=== PATIENT | female | born 2000 | race Caucasian/White ===

== ENCOUNTER 2023-06-10 00:25 | Inpatient (IN) | payer OTHER ==
[2023-06-10] MEDS ORDERED: ELECTROLYTE-148 SOLN 1,000 ML IV SCH (01:20)
[2023-06-10] MEDS ORDERED: AMPICILLIN - 2 GM in SODIUM CHLORIDE 100 ML IVPB ONE (01:30)
[2023-06-10 02:04] VITALS: BMI 29.1
[2023-06-10 02:04] LABS: BASO % 0.3 % (0-2.0); EOS % 0.3 % (0-4.5); LYMPH % 19.1 % (8-40); MCHC 33.3 g/dl (32.0-36.0); MEAN CELL VOLUME 87.3 fl (80-96); MONO % 9.6 % (3.8-10.2); NEUT % 70.7 % (42.8-82.8); PLATELET COUNT 264 10^3/uL (134-434); RBC 4.13 M/mm3 (3.60-5.2); RDW 13.6 % (11.6-15.6); WHITE BLOOD COUNT 17.2 K/mm3 (4.0-10.0)
[2023-06-10 02:12] LABS: INR 0.95 (0.83-1.09)
[2023-06-10 02:15] LABS: ACTIVATED PTT 25.8 SECONDS (25.2-36.5)
[2023-06-10] MEDS ORDERED: OXYTOCIN 20 UNITS in 0.9% NS 20 UNIT/1,000 ML INFUS.BAG IV ONE (02:15)
[2023-06-10] MEDS ORDERED: LIDOCAINE HCL 1% PRESERVATIVE FREE - 30ML VIAL ONE (02:15)
[2023-06-10 02:36] LABS: POTASSIUM 3.6 mmol/L (3.5-5.1)
[2023-06-10 02:39] LABS: BLOOD UREA NITROGEN 9.5 mg/dL (7-18); CALCIUM 9.1 mg/dL (8.5-10.1)
[2023-06-10 02:43] LABS: CREATININE 0.6 mg/dL (0.55-1.3)
[2023-06-10] MEDS ORDERED: ACETAMINOPHEN 325 MG TABLET (FP) PO PRN (02:48)
[2023-06-10] MEDS ORDERED: METHYLERGONOVINE MALEATE 0.2 MG/1 ML AMP IM PRN (02:48)
[2023-06-10] MEDS ORDERED: oxyCODONE HCL 5 MG TABLET PO PRN (02:48)
[2023-06-10] MEDS ORDERED: BENZOCAINE 20% 57 GM BOTTLE TP PRN (02:48)
[2023-06-10] MEDS ORDERED: IBUPROFEN 600 MG TABLET (FP) PO PRN (02:48)
[2023-06-10] MEDS ORDERED: BISACODYL 10 MG SUPP.RECT RC PRN (02:48)
[2023-06-10] MEDS ORDERED: WITCH HAZEL 50% (TUCKS) 40 PAD/JAR PAD TP PRN (02:48)
[2023-06-10] MEDS ORDERED: BENZOCAINE 28 GM HEMORRHOIDAL OINTMENT TP PRN (02:48)
[2023-06-10] MEDS ORDERED: OXYTOCIN 20 UNITS in 0.9% NS 20 UNIT/1,000 ML INFUS.BAG IV SCH (03:00)
[2023-06-11 07:58] LABS: BASO % 0.6 % (0-2.0); EOS % 0.6 % (0-4.5); HEMATOCRIT 31.2 % (32.4-45.2); HEMOGLOBIN 10.3 GM/dL (10.7-15.3); LYMPH % 20.6 % (8-40); MCH 29.2 pg (25.7-33.7); MEAN CELL VOLUME 88.5 fl (80-96); MEAN PLT VOLUME 7.6 fl (7.5-11.1); MONO % 8.2 % (3.8-10.2); PLATELET COUNT 236 10^3/uL (134-434); RBC 3.53 M/mm3 (3.60-5.2); RDW 13.5 % (11.6-15.6); WHITE BLOOD COUNT 15.9 K/mm3 (4.0-10.0)
[2023-06-11] MEDS: AMPICILLIN - 1 GM in SODIUM CHLORIDE 100 ML IVPB SCH ×2 (13:04→13:05)
[2023-06-11] MEDS ORDERED: SENNOSIDES/DOCUSATE COMBO (SENNA PLUS) TABLET (UD) PO PRN (22:00)
[2023-06-11 23:00] VITALS: BP 110/71
[2023-06-12 10:07] VITALS: PULSE 79; RESP 17; TEMP 97.7
== END 2023-06-12 12:08 | disposition home or self-care (01) | DRG 807 ==
LOC: JLDR 00:25 → J3W 05:45
PROVIDERS: ADMIT Specialist; ATTEND Specialist
PROC: 10E0XZZ Delivery of Products of Conception, External Approach (ICD-10-PCS; principal; 2023-06-10)
PROC: 0W8NXZZ Division of Female Perineum, External Approach (ICD-10-PCS; 2023-06-10)
PROC: 10907ZC Drainage of Amniotic Fluid, Therapeutic from Products of Conception, Via Natural or Artificial Opening (ICD-10-PCS; 2023-06-10)
DX: O69.81X0 Labor and delivery complicated by cord around neck, without compression, not applicable or unspecified (principal); Z37.0 Single live birth; O99.824 Streptococcus B carrier state complicating childbirth; Z3A.40 40 weeks gestation of pregnancy
CPT/HCPCS: 36415; 80048; 85025; 85610; 85730; 86780; 86850; 86900; 86901